=== PATIENT | female | born 1960 | race African-American/Black ===

== ENCOUNTER 2017-04-01 11:16 | Emergency (ER) | payer MEDICARE, MEDICAID | END 2017-04-01 12:55 | disposition home or self-care (01) | LOC: D.ER 11:16 | DX: S05.01XA Injury of conjunctiva and corneal abrasion without foreign body, right eye, initial encounter (principal); X58.XXXA Exposure to other specified factors, initial encounter; Y93.89 Activity, other specified; Y92.89 Other specified places as the place of occurrence of the external cause; F17.200 Nicotine dependence, unspecified, uncomplicated ==